=== PATIENT | female | born 1995 | race Two or more races ===

== ENCOUNTER 2017-11-02 18:01 | Emergency (ER) | payer BC, MEDICAID ==
--- NOTE | 2017-11-02 18:16 | EDM.PDOC ---
ED HPI GENERAL MEDICAL PROBLEM - General Chief Complaint: Skin Complaint Stated Complaint: labial sore Time Seen by Provider: 11/02/17 18:03 Source of Information: Reports: Patient, RN, RN Notes Reviewed History Limitations: Reports: No Limitations - History of Present Illness INITIAL COMMENTS - FREE TEXT/NARRATIVE: Patient presents to the ED at [facility] with concerns of a left lower labial sore that started yesterday. Patient states the area is tender to touch and has a burning sensation. She is not sure if she has been exposed to an STD, but it is possible. Patient denies any fever or chills. No abdominal or pelvic pain. No sure if she has been having any UTI symptoms. She does not think she has had any vaginal discharge. Onset Date: 11/01/17 Left Perineal Area Pain Score (Numeric/FACES): 5 - Related Data Allergies Allergy/AdvReac Type Severity Reaction Status Date / Time No Known Allergies Allergy Verified 11/02/17 18:37 Home Meds: Home Meds valACYclovir HCl [valACYclovir] 1 tab PO BID #5 tablet 11/02/17 [Rx] valACYclovir HCl [valACYclovir] 1 tab PO BID 5 Days #10 tablet 11/02/17 [Rx] ED ROS GENERAL - Review of Systems Review Of Systems: See Below Constitutional: Denies: Fever, Chills Respiratory: Denies: Shortness of Breath, Cough Cardiovascular: Denies: Chest Pain, Palpitations GI/Abdominal: Denies: Abdominal Pain, Nausea, Vomiting : Denies: Pain Skin: Reports: Lesions (labial) Neurological: Reports: No Symptoms ED EXAM, SKIN/RASH Exam: See Below Exam Limited By: No Limitations General Appearance: Alert, No Apparent Distress Respiratory/Chest: No Respiratory Distress, Lungs Clear, Normal Breath Sounds Cardiovascular: Normal Peripheral Pulses, Regular Rate, Rhythm Peripheral Pulses: 2+: Radial (L), Radial (R) GI/Abdominal: Normal Bowel Sounds, Soft, Non-Tender (Female) Exam: Vaginal Lesions (Left lower labial clusters of blister-like lesion, external; area consistent with possible HSV infection) Neurological: Alert, Oriented Skin: Warm, Dry, Normal Color Location, Skin: Genital (Left lower labia; cluster of blisters consistent with possible HSV infection) Associated features: Tenderness, Inflammation Course - Vital Signs Last Recorded V/S: Last Vital Signs Temp 35.5 C 11/02/17 18:15 Pulse 88 11/02/17 18:15 Resp 16 11/02/17 18:15 BP 131/59 L 11/02/17 18:15 Pulse Ox - Orders/Labs/Meds Orders: Active Orders 24 hr Category Date Time Status BASIC METABOLIC PANEL,BMP [CHEM] Stat Lab 11/02/17 18:55 Received CHLAMYDIA/GC NUCLEIC ACID AMP [MREF] Stat Lab 11/02/17 19:15 Received CULTURE WOUND + SMEAR [RM] Stat Lab 11/02/17 18:49 Received HEPATITIS PANEL, ACUTE [REF] Stat Lab 11/02/17 18:55 Received HERPES SIMPLEX VIR 1,2 IGG/IGM [REF] Stat Lab 11/02/17 18:55 Received HIV 1/2 AG/AB W/RFLX SUP ASSAY [REF] Stat Lab 11/02/17 18:55 Received RPR [REF] Stat Lab 11/02/17 18:55 Received UA W/MICROSCOPIC [URIN] Stat Lab 11/02/17 19:15 Received Labs: Laboratory Tests 11/02/17 Range/Units 18:55 WBC 6.3 (4.0-10.0) x10^3/uL RBC 4.95 (4.00-5.50) x10^6/uL Hgb 15.7 (12.0-16.0) g/dL Hct 48.1 H (33.0-47.0) % MCV 97.2 H (78.0-93.0) fL MCH 31.7 (26.0-32.0) pg MCHC 32.6 (32.0-36.0) g/dL RDW Coeff of [place] 13.8 (10.0-15.0) % Plt Count 395 (130-400) x10^3/uL Neut % (Auto) 61.0 (50.0-80.0) % Lymph % (Auto) 28.2 (25.0-50.0) % [place] % (Auto) 8.5 (2.0-11.0) % Eos % (Auto) 2.1 (0.0-4.0) % Baso % (Auto) 0.2 (0.2-1.2) % Departure - Departure Time of Disposition: 19:31 Disposition: Home, Self-Care 01 Condition: Good Clinical Impression: Exposure to STD Genital herpes Qualifiers: Herpes simplex infection site: vulvovaginitis Qualified Code(s): A60.04 - Herpesviral vulvovaginitis - Discharge Information Prescriptions: valACYclovir HCl [valACYclovir] 1 tab PO BID #5 tablet valACYclovir HCl [valACYclovir] 1 tab PO BID 5 Days #10 tablet Instructions: Genital Herpes Referrals: PCP,None [Primary Care Provider] - Forms: ED Department Discharge Additional Instructions: 1. Stay well hydrated and rest 2. Take medication for the full coarse, even if symptoms are better 3. Will mail out lab results when they are available 4. Call with any questions or concerns - Problem List Review Problem List Initiated/Reviewed/Updated: Yes - My Orders Last 24 Hours: My Active Orders 11/02/17 18:49 CULTURE WOUND + SMEAR [RM] Stat 11/02/17 18:55 BASIC METABOLIC PANEL,BMP [CHEM] Stat HEPATITIS PANEL, ACUTE [REF] Stat HERPES SIMPLEX VIR 1,2 IGG/IGM [REF] Stat HIV 1/2 AG/AB W/RFLX SUP ASSAY [REF] Stat RPR [REF] Stat 11/02/17 19:15 CHLAMYDIA/GC NUCLEIC ACID AMP [MREF] Stat UA W/MICROSCOPIC [URIN] Stat - Assessment/Plan Last 24 Hours: My Active Orders 11/02/17 18:49 CULTURE WOUND + SMEAR [RM] Stat 11/02/17 18:55 BASIC METABOLIC PANEL,BMP [CHEM] Stat HEPATITIS PANEL, ACUTE [REF] Stat HERPES SIMPLEX VIR 1,2 IGG/IGM [REF] Stat HIV 1/2 AG/AB W/RFLX SUP ASSAY [REF] Stat RPR [REF] Stat 11/02/17 19:15 CHLAMYDIA/GC NUCLEIC ACID AMP [MREF] Stat UA W/MICROSCOPIC [URIN] Stat
[2017-11-02 19:38] LABS: CHLORIDE,CL 104 mmol/L (98-107); SODIUM,NA 144 mmol/L (136-145)
[2017-11-02] MEDS ORDERED: Take Home: metroNIDAZOLE 500 MG Tab, 4 Tab Pack PO ONE (19:55)
[2017-11-02] MEDS ORDERED: valACYclovir 1,000 MG Tab ONE (19:57)
[2017-11-02] MEDS ORDERED: valACYclovir 1,000 MG Tab PO SCH (20:00)
== END 2017-11-02 20:13 | disposition home or self-care (01) ==
LOC: VM.ED 18:01
DX: A60.04 Herpesviral vulvovaginitis (principal); N76.0 Acute vaginitis; B96.89 Other specified bacterial agents as the cause of diseases classified elsewhere
CPT/HCPCS: 36415; 80048; 80074; 81001; 85025; 86592; 86694; 86695; 86696; 87210; 87491; 87529; 87591; 99283; A9270; G0475

== ENCOUNTER 2018-07-23 18:19 | Emergency (ER) | payer BC ==
--- NOTE | 2018-07-23 18:57 | EDM.PDOC ---
ED HPI GENERAL MEDICAL PROBLEM - General Chief Complaint: ENT Problem Stated Complaint: abscess in throat Time Seen by Provider: 07/23/18 18:33 Source of Information: Reports: Patient History Limitations: Reports: No Limitations - History of Present Illness INITIAL COMMENTS - FREE TEXT/NARRATIVE: Patient reports pain in throat since last week. She states she was seen in the clinic and both rapid strep and culture was negative. She states she felt something in the back of her throat "pop". She denies any fever, chills, or night sweats. She also does deny any sexual activity including oral sex that may cause this infection. She denies headache, no ear ache. Denies chest pain , nausea, vomiting, cough, SOB, LOC. No respiratory complaints. No other complaints tonight. Onset: Gradual Duration: Intermittent Location: Reports: Neck Severity: Mild Improves with: Reports: None Worsens with: Reports: None Associated Symptoms: Reports: No Other Symptoms - Related Data Allergies Allergy/AdvReac Type Severity Reaction Status Date / Time No Known Allergies Allergy Verified 11/02/17 18:37 Home Meds: Home Meds metroNIDAZOLE [Flagyl] 1 tab PO Q12H 5 Days #10 tablet 11/02/17 [Rx] valACYclovir HCl [valACYclovir] 1 tab PO BID #5 tablet 11/02/17 [Rx] valACYclovir HCl [valACYclovir] 1 tab PO BID 5 Days #10 tablet 11/02/17 [Rx] Past Medical History - Past Surgical History GI Surgical History: Reports: Cholecystectomy ED ROS ENT - Review of Systems Review Of Systems: See Below Constitutional: Reports: No Symptoms HEENT: Reports: Throat Pain (throat swelling) Respiratory: Reports: No Symptoms Cardiovascular: Reports: No Symptoms Endocrine: Reports: No Symptoms GI/Abdominal: Reports: No Symptoms : Reports: No Symptoms Musculoskeletal: Reports: No Symptoms Skin: Reports: No Symptoms Neurological: Reports: No Symptoms Psychiatric: Reports: No Symptoms Hematologic/Lymphatic: Reports: No Symptoms Immunologic: Reports: No Symptoms ED EXAM, ENT - Physical Exam Exam: See Below Exam Limited By: No Limitations General Appearance: Alert, WD/WN, No Apparent Distress Eye Exam: Bilateral Eye: EOMI, Normal Inspection, PERRL Ears: Normal TMs Nose: Normal Inspection Mouth/Throat: Peritonsillar Mass (papular head on swollen area to left peritonsillar area) Head: Atraumatic, Normocephalic Neck: Lymphadenopathy (L), Tender Lateral Respiratory/Chest: No Respiratory Distress, Lungs Clear, Normal Breath Sounds, No Accessory Muscle Use, Chest Non-Tender Cardiovascular: Normal Peripheral Pulses, Regular Rate, Rhythm, No Edema, No Gallop, No JVD, No Murmur, No Rub GI/Abdominal: Normal Bowel Sounds, Soft, Non-Tender, No Organomegaly, No Distention, No Abnormal Bruit, No Mass Back: Normal Inspection, Full Range of Motion Extremities: Normal Inspection, Normal Range of Motion, Non-Tender, No Pedal Edema, Normal Capillary Refill Neurological: Alert, Oriented, CN II-XII Intact, Normal Cognition, Normal Gait, Normal Reflexes, No Motor/Sensory Deficits Psychiatric: Normal Affect, Normal Mood Skin: Warm, Dry, Intact, Normal Color, No Rash Lymphatic: No Adenopathy Course - Orders/Labs/Meds Orders: Active Orders 24 hr Category Date Time Status CULTURE STREP A CONFIRMATION [] Stat Lab 07/23/18 18:36 Results STREP SCRN A RAPID W CULT CONF [] Stat Lab 07/23/18 18:36 Results Meds: Medications Discontinued Medications Generic Name Dose Route Start Last Admin Trade Name Freq PRN Reason Stop Dose Admin Amoxicillin/Clavulanate Potassium 1 tab 07/23/18 18:47 Augmentin 875 Mg/125 Mg PO 07/23/18 18:48 ONETIME ONE Departure - Departure Time of Disposition: 19:06 Disposition: Home, Self-Care 01 Condition: Good Clinical Impression: Tonsil, abscess - Discharge Information *PRESCRIPTION DRUG MONITORING PROGRAM REVIEWED*: Not Applicable *COPY OF PRESCRIPTION DRUG MONITORING REPORT IN PATIENT LEWIS: Not Applicable Instructions: Peritonsillar Abscess, Clostridium Difficile Infection, Easy-to- Read, Probiotics Forms: ED Department Discharge Additional Instructions: Follow up with your primary provider. Take the entire augmentin dose even if you feel better. Watch for signs of allergic reaction including rash, difficulty breathing. Diarrhea can be a normal side effect and is not an allergy. You also need to eat extra yogurt and take probiotics to prevent a bacterial infection called C. Difficile which can be caused by antibiotic use. Drink plenty of water and stay well hydrated. If your infection does not improve over the next 7-10 days, you should call your primary provider. Please call if you have any questions or concerns. - Problem List & Annotations (1) Tonsil, abscess SNOMED Code(s): 12906883 Code(s): J36 - PERITONSILLAR ABSCESS Status: Acute Priority: Medium - Problem List Review Problem List Initiated/Reviewed/Updated: Yes - My Orders Last 24 Hours: My Active Orders 07/23/18 18:36 CULTURE STREP A CONFIRMATION [RM] Stat STREP SCRN A RAPID W CULT CONF [RM] Stat - Assessment/Plan Last 24 Hours: My Active Orders 07/23/18 18:36 CULTURE STREP A CONFIRMATION [RM] Stat STREP SCRN A RAPID W CULT CONF [RM] Stat Assessment:: peritonsilar abscess Plan: Follow up with your primary provider. Take the entire augmentin dose even if you feel better. Watch for signs of allergic reaction including rash, difficulty breathing. Diarrhea can be a normal side effect and is not an allergy. You also need to eat extra yogurt and take probiotics to prevent a bacterial infection called C. Difficile which can be caused by antibiotic use. Drink plenty of water and stay well hydrated. If your infection does not improve over the next 7-10 days, you should call your primary provider. Please call if you have any questions or concerns.
[2018-07-23] MEDS: Amoxicillin/Clavulanate K 875-125 MG Tab PO ONE (19:10)
== END 2018-07-23 19:15 | disposition home or self-care (01) ==
LOC: VM.ED 18:19
DX: J36 Peritonsillar abscess (principal)
CPT/HCPCS: 87081; 87880-QW; 99283; A9270-GY

== ENCOUNTER 2019-06-03 20:59 | Emergency (ER) | payer BC ==
[2019-06-03] MEDS ORDERED: Lidocaine 2% 10 ML Amp INJECT ONE (21:15)
[2019-06-03] MEDS ORDERED: Diphtheria,Pertussis(Acell),Tetanus Vaccine 0.5 ML Syringe IM ONE (21:15)
--- NOTE | 2019-06-03 21:28 | EDM.PDOC ---
ED HPI GENERAL MEDICAL PROBLEM - General Chief Complaint: Laceration Stated Complaint: Avulsion to tip of left index finger Time Seen by Provider: 06/03/19 21:05 Source of Information: Reports: Patient History Limitations: Reports: No Limitations - History of Present Illness Onset: Today Quality: Reports: Ache Improves with: Reports: None Worsens with: Reports: None left index finger Pain Score (Numeric/FACES): 6 - Related Data Allergies Allergy/AdvReac Type Severity Reaction Status Date / Time No Known Allergies Allergy Verified 06/03/19 21:15 Home Meds: Home Meds . [No Known Home Meds] 07/23/18 [History] Past Medical History - Past Health History Medical/Surgical History: Denies Medical/Surgical History - Past Surgical History GI Surgical History: Reports: Cholecystectomy ED ROS GENERAL - Review of Systems Review Of Systems: See Below Constitutional: Reports: No Symptoms HEENT: Reports: No Symptoms Respiratory: Reports: No Symptoms Cardiovascular: Reports: No Symptoms Endocrine: Reports: No Symptoms GI/Abdominal: Reports: No Symptoms Skin: Reports: Other (avulsion tip of index finger left hand ) ED EXAM, SKIN/RASH Exam: See Below Text/Narrative:: avulsion to tip of left index finger, no skin to suture. Pt given digital block pain improved dressing in place. Will place on keflex bid for 10 days. Exam Limited By: No Limitations General Appearance: Alert, WD/WN, Moderate Distress Ears: Normal External Exam Nose: Normal Inspection Throat/Mouth: Normal Inspection Head: Atraumatic, Normocephalic Neck: Normal Inspection Respiratory/Chest: No Respiratory Distress Cardiovascular: Normal Peripheral Pulses Extremities: Other (avulsion index finger left hand, not able to suture. ) Skin: Warm Course - Vital Signs Last Recorded V/S: Last Vital Signs Temp 35.9 C 06/03/19 20:59 Pulse 92 06/03/19 20:59 Resp 16 06/03/19 20:59 BP 130/82 06/03/19 20:59 Pulse Ox - Orders/Labs/Meds Orders: Active Orders 24 hr Category Date Time Status Vaccines to be Administered [RC] PER UNIT ROUTINE Care 06/03/19 21:15 Ordered Diphth,Pertuss(Acell),Tet Vac [Adacel] Med 06/03/19 21:15 Once 0.5 ml IM .ONCE ONE Lidocaine 2% [Xylocaine-MPF 2% (Sterile-Jeffrey)] Med 06/03/19 21:15 Once 10 ml INJECT ONETIME ONE Departure - Departure Time of Disposition: 21:34 Disposition: Home, Self-Care 01 Clinical Impression: Avulsion of skin of finger - Discharge Information *PRESCRIPTION DRUG MONITORING PROGRAM REVIEWED*: Not Applicable *COPY OF PRESCRIPTION DRUG MONITORING REPORT IN PATIENT LEWIS: Not Applicable Instructions: Wound Care, Adult Additional Instructions: Follow up at clinic for wound check. Pt place on keflex 500 mg po bid x 10 days - My Orders Last 24 Hours: My Active Orders 06/03/19 21:15 Vaccines to be Administered [RC] PER UNIT ROUTINE Diphth,Pertuss(Acell),Tet Vac [Adacel] 0.5 ml IM .ONCE ONE Lidocaine 2% [Xylocaine-MPF 2% (Sterile-Jeffrey)] 10 ml INJECT ONETIME ONE - Assessment/Plan Last 24 Hours: My Active Orders 06/03/19 21:15 Vaccines to be Administered [RC] PER UNIT ROUTINE Diphth,Pertuss(Acell),Tet Vac [Adacel] 0.5 ml IM .ONCE ONE Lidocaine 2% [Xylocaine-MPF 2% (Sterile-Jeffrey)] 10 ml INJECT ONETIME ONE
== END 2019-06-03 21:51 | disposition home or self-care (01) ==
LOC: VM.ED 20:59
DX: S61.201A Unspecified open wound of left index finger without damage to nail, initial encounter (principal); Z23 Encounter for immunization; W26.0XXA Contact with knife, initial encounter
CPT/HCPCS: 64450; 90471; 90715; 99282; J2001